=== PATIENT | male | born 1955 | race Caucasian/White ===

== ENCOUNTER 2018-10-03 13:06 | Day surgery (SDC) | payer BC ==
[2018-10-02 14:41] VITALS: BMI 32.8
[2018-10-03] MEDS ORDERED: Oxymetazoline HCl 0.05% ( 15 ML ) ONE ×2 (16:17→17:17)
[2018-10-03] MEDS ORDERED: Lidocaine 1% w/Epinephrine 1:100K 20 ML VIAL ONE (17:17)
[2018-10-03] MEDS ORDERED: Bacitracin Zinc Ointment 30 gm TUBE ONE (17:17)
[2018-10-03] MEDS ORDERED: Fentanyl 100 MCG/2 ML VIAL ONE (17:18)
[2018-10-03] MEDS ORDERED: Midazolam HCl 2 mg/2 ml Vial ONE (17:42)
[2018-10-03] MEDS ORDERED: PROPOFOL 200 MG/20 ML VIAL ONE (18:00)
[2018-10-03] MEDS ORDERED: Dexamethasone 20 MG/5 ML VIAL ONE (18:00)
[2018-10-03] MEDS ORDERED: Glycopyrrolate 0.2 MG/ML 5 ML SYRINGE ONE (18:00)
[2018-10-03] MEDS ORDERED: Ondansetron PF 4 MG/2 ML Vial ONE (18:00)
[2018-10-03] MEDS ORDERED: Rocuronium Bromide 10 MG/ML (10ML VIAL) ONE (18:00)
[2018-10-03] MEDS ORDERED: Lidocaine 2% PF 5 ML VIAL ONE (18:00)
[2018-10-03] MEDS ORDERED: SUGAMMADEX SODIUM 200 MG/2 ML VIAL ONE (18:34)
[2018-10-03] MEDS ORDERED: Hydrocodone-Acetamin 15 ML UDCUP ONE (19:40)
--- NOTE | 2018-10-04 11:51 | OP ---
DATE OF PROCEDURE: 10/03/2018 PREOPERATIVE DIAGNOSES: 1. Chronic rhinosinusitis. 2. Nasal septal deviation. 3. Bilateral inferior turbinate hypertrophy. 4. Rhinitis medicamentosa. POSTOPERATIVE DIAGNOSES: 1. Chronic rhinosinusitis. 2. Nasal septal deviation. 3. Bilateral inferior turbinate hypertrophy. 4. Rhinitis medicamentosa. PROCEDURES PERFORMED: 1. Bilateral endoscopic sinus surgery, total ethmoidectomies. 2. Bilateral endoscopic sinus surgery, maxillary antrostomies. 3. Bilateral endoscopic sinus surgery, frontal sinusotomies. 4. Nasal septoplasty. 5. Bilateral inferior turbinate submucosal resection. ESTIMATED BLOOD LOSS: 20 mL. COMPLICATIONS: None. ANESTHESIA: GETA. PROCEDURE IN DETAIL: Patient was taken to the operating room and placed supine on the table. General endotracheal anesthesia was obtained by the anesthesia staff. Tube was secured in the left lower lip. Patient was then placed in the beach chair position, and Afrin pledgets were placed in the nasal cavity. Injections of 1% lidocaine with 1:100,000 epinephrine were made into the nasal septum as well as the inferior turbinates. Patient was then prepped and draped in standard surgical fashion for nasal surgery. Following this, the Afrin pledgets were removed. A Dayo incision was made on the left nasal septum. Submucoperichondrial dissection was performed. The deviated portions of the septum included portions of the cartilage and the bony septum. These isolated areas were removed using 3 cutting rongeurs. There was noted to be a large dorsal and caudal strut, left intact for support of the nose. The mucoperichondrial flaps were then reapproximated using a 4-0 gut stitch. Any straight pieces of cartilage were crushed prior to this and placed between the mucoperichondrial flaps. Following this, the inferior turbinates were then punctured with a submucosal coblation wand, and submucosal coblations were performed of multiple areas of the inferior portion of the anterior inferior turbinate. Bilateral total ethmoidectomies: Bilateral maxillary antrostomies: Following this, the 45-degree scope was used along with the 40-degree microdebrider blade to further open the anterior ethmoidal cells as well as the frontal recess cells. This exposed the frontal sinus ostia bilaterally. The frontal sinus ostia were widened bilaterally using the 40-degree microdebrider blade. Following this, the nasal cavity was irrigated. Mirapex was placed within the middle meatus. Avila splints were placed and secured. The patient tolerated the procedure well. Job ID: [id number]
== END 2018-10-03 20:15 | disposition home or self-care (01) ==
LOC: SDC 13:06
PROVIDERS: ATTEND Otolaryngology Plastic Surgery within the Head & Neck
PROC: 09TL8ZZ Resection of Nasal Turbinate, Via Natural or Artificial Opening Endoscopic (ICD-10-PCS; principal; 2018-10-03)
PROC: 09BM8ZZ Excision of Nasal Septum, Via Natural or Artificial Opening Endoscopic (ICD-10-PCS; principal; 2018-10-03)
PROC: 099R8ZZ Drainage of Left Maxillary Sinus, Via Natural or Artificial Opening Endoscopic (ICD-10-PCS; principal; 2018-10-03)
PROC: 099Q8ZZ Drainage of Right Maxillary Sinus, Via Natural or Artificial Opening Endoscopic (ICD-10-PCS; principal; 2018-10-03)
DX: J32.4 Chronic pansinusitis (principal); J34.2 Deviated nasal septum; J34.3 Hypertrophy of nasal turbinates; J31.0 Chronic rhinitis; H69.90 Unspecified Eustachian tube disorder, unspecified ear; H72.90 Unspecified perforation of tympanic membrane, unspecified ear
CPT/HCPCS: 93005; 93010; J0131; J1100; J2001; J2250; J2405; J2704; J3010